=== PATIENT | female | born 1965 | race Caucasian/White ===

== ENCOUNTER 2022-01-15 19:36 | Emergency (ER) | payer OTHER, SELFPAY ==
[2022-01-15 19:49] VITALS: BP 106/75; PULSE 86; RESP 14; TEMP 37; O2SAT 97; BMI 21.0
[2022-01-15 20:05] LABS: Appearance Urine TURBID; Color Urine RED; Glucose Urine UA 250 MG/DL (NEG); PH 6.5 (5.0-8.0); Specific Gravity - Urine 1.025 (1.005-1.025); Urine Blood 3+ (NEG); Urine Ketones 15 MG/DL (NEG); Urine Protein 3+ MG/DL (NEG-TRACE)
[2022-01-15 20:25] VITALS: BP 105/78; PULSE 67; TEMP 37.3; O2SAT 95
[2022-01-15 20:33] LABS: Bacteria Urine 2+ /LPF; RBC Urine TNTC /HPF (0); Squamous Epithelial Cell Urine TRACE /LPF; WBC Clumps Urine NOTED; WBC Urine TNTC /HPF (0-4)
[2022-01-15] MEDS: Nitrofurantoin Monohyd/M-Cryst 100 MG CAPSULE PO (20:53)
--- NOTE | 2022-01-15 20:57 | ED_ITS ---
HPI - Female Genitourinary General Chief complaint: Urogenital-Female Stated complaint: UTI, bloody urine Time Seen by Provider: 01/15/22 20:18 Source: patient Mode of arrival: ambulatory History of Present Illness HPI Narrative: 56-year-old female without significant past medical history presents with complaints of urinary pain and burning that started this morning she denies any fever, chills, with back pain or flank pain and states that she attempted to take [id number] medication but it change the color of her urine and had no improvement. Related Data Previous Rx's Medication Instructions Recorded nitrofurantoin 100 mg PO Q12H 5 days #10 caps 01/15/22 monohydrate/macrocrystals 100 mg capsule (Macrobid) Allergies Allergy/AdvReac Type Severity Reaction Status Date / Time peanut [Peanut] Allergy Unknown THROAT Unverified 02/27/20 17:41 SWELLS, VOMITING Review of Systems Review of Systems: Pertinent positives and negatives as stated HPI 10 point review of systems otherwise negative. [facility] Past Medical History Source: nursing notes reviewed Social History Social History Advance Directives: No Advance Directives Information Provided: No Physical Exam Vital Signs: Vital Signs: Last Vital Signs Temp 99.2 F 01/15/22 20:25 Pulse 67 01/15/22 20:25 Resp 14 01/15/22 19:49 BP 105/78 01/15/22 20:25 Pulse Ox 95 01/15/22 20:25 O2 Del Method 01/15/22 20:25 BMI result Body Mass Index 21.0 VITAL SIGNS: Reviewed. GENERAL: Well developed, well nourished, in no acute distress. HEAD: Normocephalic/atraumatic EYES: PERRLA, EOMI EARS: Ext canals without abnormality OROPHARYNX: no oral lesions noted, posterior pharynx clear LUNGS: Normal breath sounds. No adventitious sounds or accessory muscle use. SpO2<95> CARDIOVASCULAR: Regular rate and rhythm without noted murmurs ABDOMEN: Soft, non-tender, non-distended with bowel sounds, no CVA tenderness. SKIN: Inspection of the skin reveals no rashes NEUROLOGIC: Alert and oriented x 4. Strength and sensation to light touch were grossly intact x 4. Course Course Course Narrative: 56-year-old female with history and clinical presentation consistent with dysuria and on review urinalysis there are numerous rbc's and wbc's with the presence of urine bacteria. Patient was provided with initial antibiotics here in the emergency room and discharged with remaining course. She is otherwise discharged home in stable condition. MDM - Female Genitourinary Lab Data Labs: Lab Results 01/15/22 Range/Units 19:53 Urine Color RED A Urine Appearance TURBID Urine pH 6.5 (5.0-8.0) Ur Specific [place] 1.025 (1.005-1.025) Urine Protein 3+ H (NEG-TRACE) MG/DL Urine Glucose (UA) 250 H (NEG) MG/DL Urine Ketones 15 (NEG) MG/DL Urine Blood 3+ H (NEG) Urine Nitrite Not Reportable Ur Leukocyte Esterase Not Reportable Urine RBC TNTC H (0) /HPF Urine WBC TNTC H (0-4) /HPF Urine WBC Clumps NOTED Ur Squamous Epith Cells TRACE /LPF Urine Bacteria 2+ /LPF Discharge Plan Discharge Clinical Impression: Urinary tract infection Patient Disposition: Home, Self-Care Instructions: Urinary Tract Infection in Women (ED) Additional Instructions: 1. Complete the entire course of antibiotics as prescribed. Increase your water intake. 2. Follow-up with your primary care provider as scheduled since this is your 2nd urinary tract infection within a month. Return to the ER for worsening symptoms. Prescriptions: New nitrofurantoin monohyd/m-cryst [Macrobid] 100 mg capsule 100 mg PO Q12H 5 Days Qty: 10 0RF Rx Instructions: must administer with a meal/food Referrals: Audrey Mcgovern NP [Primary Care Provider] -
[2022-01-15 21:34] LABS: UACC Culture Trigger YES
== END 2022-01-15 21:00 | disposition home or self-care (01) ==
PROVIDERS: Emergency Provider Student in an Organized Health Care Education/Training Program; PCP Nurse Practitioner Family
DX: N39.0 Urinary tract infection, site not specified (principal)
CPT/HCPCS: 81001; 81003; 87086; 99283; 99284